=== PATIENT | female | born 1965 | race Caucasian/White ===

== ENCOUNTER 2020-04-17 20:01 | Emergency (ER) | payer MEDICARE, MEDICAID, SELFPAY ==
[2020-04-17 20:35] VITALS: BP 156/89; PULSE 89; RESP 14; TEMP 36.4; O2SAT 97; BMI 32.9
--- NOTE | 2020-04-17 20:38 | XRR_ITS ---
PROCEDURE INFORMATION: Exam: XR Left Ankle Exam date and time: 04/17/2020 8:54 PM Age: 55 years old Clinical indication: Injury or trauma; Fall; Initial encounter; Blunt trauma; Ankle; Bilateral TECHNIQUE: Imaging protocol: XR Left ankle. Views: 3 or more views. COMPARISON: No relevant prior studies available. FINDINGS: Bones/joints: Bimalleolar fracture left ankle. Minimally displaced avulsion fracture of the medial malleolus. Minimally displaced spiral fracture lateral malleolus. Ankle mortise intact. Soft tissues: Soft tissue swelling. XR/XR ankle LT min 3V* [id number] IMPRESSION: Bimalleolar fracture left ankle.
--- NOTE | 2020-04-17 22:15 | ED_ITS ---
HPI - Extremity Problem General: Chief complaint: Extremity Injury, Lower Stated complaint: L ankle injury Time Seen by Provider: 04/17/20 21:36 Source: patient Mode of arrival: ambulatory Limitations: no limitations History of Present Illness: HPI Narrative: Patient comes in for injury to the left ankle. Patient reports not being able to see well without her glasses on and missed stepped causing her left ankle to be twisted and injured. Patient denies any other injury. MD Complaint: joint swelling and joint pain Review of Systems General: Reports: 10 or more systems reviewed and unremarkable except in HPI and below Musc: Reports: other (Left ankle injury) Physical Exam Const: COMMON NORMALS: no acute distress and patient oriented x3 GENERAL APPEARANCE: cooperative HENMT: COMMON NORMALS: normocephalic and Normal external nose present HEAD & SCALP: normal to inspection and normocephalic NOSE: Normal external nose present Eye: GENERAL EYE: appearance normal, both eyes and all related structures Neck/C-Spine: COMMON NORMALS: full ROM Chest: COMMONS NORMALS: normal inspection of the chest Resp: COMMON NORMALS: normal respiratory effort EFFORT & INSPECTION: Yes able to speak in complete sentences Cardio: COMMON NORMALS: regular rate and regular rhythm RATE: regular rate RHYTHM: regular rhythm GI: COMMON NORMALS: non-tender Back/Pelvis: COMMON NORMALS: thoracic and lumbar spine normal to inspection Extremity: NARRATIVE EXTREMITY EXAM: Swelling and tenderness noted to the left lateral and medial ankle. Pulses are intact. Cap refill is normal. Neuro: COMMON NORMALS: patient oriented x3 and moves all extremities Psych: COMMON NORMALS: mental status grossly normal and cooperative Skin: COMMON NORMALS: no rashes or lesions noted GENERAL SKIN EXAM: no rashes or lesions noted Course Vital Signs: Vital signs: Vital Signs Temperature 97.5 F L 04/17/20 20:35 Pulse Rate 89 04/17/20 20:35 Respiratory Rate 14 04/17/20 20:35 Blood Pressure 156/89 04/17/20 20:35 Pulse Oximetry 97 04/17/20 20:35 MDM - Extremity (Nontraumatic) [facility] Narrative: Medical decision making narrative: Patient comes in today with injury to the left ankle. On exam we note significant swelling and tenderness to the ankle. Pulses and cap refill are normal distally. Vital signs are normal. Differential diagnosis includes but not limited to fracture, sprain, contusion. X-ray notes a tibial malleus fracture and fracture of the distal fibula. Minimal to no displacement is noted. Patient was placed in a posterior medial lateral splint with recommendations for follow-up with surgeon for further treatment and evaluation. Case management request place. Patient reports understanding of care plan and need for follow-up. Discharge Plan Discharge Patient Disposition: Home Clinical Impression: Ankle fracture Qualifiers: Encounter type: initial encounter Fracture type: closed Laterality: left Qualified Code(s): S82.892A - Other fracture of left lower leg, initial encounter for closed fracture Condition: Stable Prescriptions: New hydrocodone-acetaminophen 5-325 mg tablet 1 tab PO Q6H PRN (Reason: pain (scale score 7-10)) Qty: 14 RF: 0 Discharge Orders: Discharge Order (Routine); Ordered 04/17/20 Ordered By: Guero Ayala Referrals: Ivania Phillips FNP-C [Primary Care Provider] - Discharge Diet: Usual diet Discharge Activity: Limit activity as instructed Patient Instructions: Ankle Fracture (ED) Activity Restrictions/Additional Instructions: Limit weightbearing to the ankle. Keep splint clean and dry. Follow-up with orthopedics for further treatment and evaluation. Case management will contact you Monday regarding appointment follow-up. Return to the emergency department for new concerns. 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
[2020-04-17 22:35] VITALS: BP 132/88; PULSE 78; RESP 18; O2SAT 96
[2020-04-17] MEDS: HYDROcodone-acetaminophen 7.5-325 mg Tablet 1 TAB PO (22:35)
--- NOTE | 2020-04-20 10:09 | PC.SOCIAL ---
Spoke with Pat at [facility] regarding referral. She will have provider review and either call patient with appt or let this nurse know if unable to schedule.
--- NOTE | 2020-04-29 10:41 | DCPLANNER ---
Patient had an appointment scheduled for 04.20.20 with orth. Patient did attend the scheduled appointment.
== END 2020-04-17 22:37 | disposition home or self-care (01) ==
PROVIDERS: Emergency Provider Nurse Practitioner Family; PCP Nurse Practitioner
DX: S82.842A Displaced bimalleolar fracture of left lower leg, initial encounter for closed fracture (principal); X50.1XXA Overexertion from prolonged static or awkward postures, initial encounter
CPT/HCPCS: 12345; 29515; 73610; 99282; 99283

== ENCOUNTER 2020-04-21 11:02 | Day surgery (SDC) | payer MEDICARE, MEDICAID, SELFPAY ==
[2020-04-21] VITALS (10 sets, daily range): BP systolic 121–172; BP diastolic 76–108; PULSE 72–101; RESP 11–23; TEMP 36.2–36.4; O2SAT 97–100
--- NOTE | 2020-04-21 | XR_ITS ---
WS: [id number] INTRAOPERATIVE TECHNIQUE: 5 Spot fluoroscopic images for intraoperative purposes. FLUOROSCOPY TIME: 145.7 seconds CLINICAL INFORMATION: OR PICS, ORIF OF LEFT TIB FIB COMPARISON: None. FINDINGS: Postoperative changes plate and screw fixation distal fibula lateral malleolus. Screw fixation across the medial malleolus. Normal ankle mortise. XR/XR ankle LT min 3V* [id number] IMPRESSION: Images obtained for intraoperative purposes.
--- NOTE | 2020-04-21 | SCC_ITS ---
Procedure Done: Open reduction internal fixation of a left bimalleolar ankle fracture with medial and lateral fixation including a 3 hole distal lateral fibular plate with a combination of locking and nonlocking screws as well as 2 headless cannulated screws medially. 145.7 seconds of fluoroscopic guidance, for a cumulative dose of 3.69 mGy, was provided to Dr. Contreras by the radiology department. C-arm images of the LEFT ankle were saved for the patient's permanent record. SOFIE
[2020-04-21] MEDS: CELEcoxib 200 mg Capsule 400 MG PO (11:20)
--- NOTE | 2020-04-21 11:20 | P.HPUD_ITS ---
Surgery/Procedure H&P Update DATE OF PROCEDURE: April 21, 2020 DATE H&P PERFORMED: 04/20/20 H&P UPDATE INFORMATION: I have reviewed H&P completed within last 30 days, I have examined patient prior to procedure, No changes to prior documentation and [place] [facility] [place] date indicated PREOP DIAGNOSIS: Left bimalleolar ankle fracture PLANNED PROCEDURE: Operation Date: 04/21/20 12:00 Proposed Procedures p ORIF Ankle left bimalleolar fracture 96831/ s82.842a(Left) - Melissa Contreras MD Related Problem List Diagnoses (1) Closed bimalleolar fracture of left ankle:
--- NOTE | 2020-04-21 11:32 | ANES.PREANE2 ---
Pre-Anesthetic Assessment Pre-Anesthetic Assessment: Height/Weight: Height 1.57 m Weight 83.915 kg Preop Diagnosis: Left bimalleolar ankle fracture Proposed Procedure: Operation Date: 04/21/20 12:00 Proposed Procedures p ORIF Ankle left bimalleolar fracture 20824/ s82.842a(Left) - Melissa Contreras MD Familial anesthetic complications: None Last intake: Intake Last Liquid Date 04/20/20 Last Liquid Time 20:00 Last Solid Date 04/20/20 Last Solid Time 20:00 Social: Social History: Tobacco and No alcohol Exam: Pre-Anes Outpt Exam: alert, oriented x 3, clear to auscultation bilaterally and regular rate & rhythm Airway: Cervical ROM: WNL MP: 2 Dentition: False Pulmonary: Pulmonary: None reported CV/HEM: CV/HEM: None reported Musc/skel: Musc/skel: None reported Neuropsych: Neuropsych: None reported Anesthetic Plan: ASA status: 1 Anesthesia: General and Regional (specify below) Risk of > 500 ml blood loss (7ml/kg in children): No PFSH Anesthesia PFSH: Medical History (Updated 04/20/20 @ 15:58 by Melissa Contreras MD) Legally blind Retinitis pigmentosa Surgical History (Updated 04/20/20 @ 15:58 by Melissa Contreras MD) Hx of section Hx of cholecystectomy Family History (Updated 04/20/20 @ 14:27 by Steffi France LPN) Mother Cancer Diabetes Hypertension Social History (Updated 04/20/20 @ 14:28 by Steffi France LPN) Smoking and tobacco status: current every day smoker Data Anesthesia Cardiac Studies: No Data to Display
[2020-04-21] MEDS: sodium chloride 0.9% 1,000 ML 30 ML IV (11:40)
[2020-04-21 12:02] LABS: Basophils # 0.1 10^3/uL (0.0-0.1); Basophils % 0.7 %; Eosinophils # 0.2 10^3/uL (0.0-0.8); Eosinophils % 2.2 %; Hematocrit 41.1 % (37.0-47.0); Hemoglobin 13.1 g/dL (11.5-15.3); Lymphocytes # 1.9 10^3/uL (0.8-4.8); Lymphocytes % 27.4 %; Mean Corpuscular HGB Conc 31.9 g/dL (30.0-36.0); Mean Corpuscular Volume 94.3 fL (81-99); Mean Platelet Volume 11.3 fL (7.4-10.4); Monocytes # 0.5 10^3/uL (0.2-0.9); Monocytes % 7.7 %; Neutrophils # 4.18 10^3/uL (1.8-7.7); Neutrophils % 61.7 %; Nucleated Red Blood Cells % 0 %; Platelet Count 231 10^3/cmm (130-400); Red Blood Count 4.36 10^6/uL (4.1-5.3); Red Cell Distribution Width 12.3 % (12.1-15.1); White Blood Count 6.8 10^3/uL (4.0-10.0)
[2020-04-21] MEDS: midazolam 1 mg/mL INJ 2 mL 2 MG IVP (12:04)
--- NOTE | 2020-04-21 12:04 | ANES.PROC ---
Anesthesia Procedures Procedure/Date: 04/21/20 Nerve Block ^: Nerve Block 1: Main Anesthesia: general anesthesia Time Out Performed: Yes Consent: requested by attending/covering physician, from patient, risks and benefits reviewed and patient agrees to proceed Nerve block location: popliteal (L) Anesthesia monitors applied: pulse oximetry and oxygen Nerve block position: supine Anesthetic Used: ropivicaine 0.5% and with decadron (3 mg) Amount of anesthesia used (mL): 20 Ultrasound used to: recognize landmarks Nerve Stimulator Used?: No Interscalene/Femoral BLK: 4 stimuplex 21 g needle used for position and inplane approach, visualize local anesthetic spread and no vascular puncture identified Injection: neg aspiration of heme and paresthesia +/- Patient Tolerated Procedure: well Complications: none Nerve Block 2: Main Anesthesia: general anesthesia Time Out Performed: Yes Consent: requested by attending/covering physician Nerve block location: adductor canal (L) Anesthesia monitors applied: pulse oximetry and oxygen Anesthetic Used: with decadron (1 mg) Amount of anesthesia used (mL): 10 Ultrasound used to: recognize landmarks Nerve Stimulator Used?: No Interscalene/Femoral BLK: 4 stimuplex 21 g needle used for position and inplane approach, visualize local anesthetic spread and no vascular puncture identified Injection: neg aspiration of heme Patient Tolerated Procedure: well Complications: none
[2020-04-21 12:06] LABS: Add Urine Microscopic? YES; Bilirubin Urine Neg (NEGATIVE); Blood Urine Neg (Negative); Glucose Urine UA Norm (Normal); Ketones Urine Negative (Negative); Leukocyte Esterase Urine Negative (Negative); Nitrate Urine Negative (Negative); Protein Urine Neg (Negative); Specific Gravity, Urine 1.025 (1.005-1.030); Urine Appearance SL Hazy (CLEAR); Urine Color Yellow (Yellow); Urobilinogen Urine 1 mg/dL (Negative); pH Urine 5 (5-7)
[2020-04-21 12:11] LABS: Alanine Aminotransferase 55 U/L (0-33); Albumin Level 3.9 g/dL (3.5-5.2); Alkaline Phosphatase 78 IU/L (35-105); Blood Urea Nitrogen 9 mg/dL (6-20); Calcium 8.3 mg/dL (8.5-10.5); Carbon Dioxide 27 mmol/L (22-29); Chloride 103 mmol/L (98-107); Globulin 3.2 g/dL (1.3-4.6); Glomerular Filtration Rate 73.9 mL/min (90-130); Glucose 114 mg/dL (65-115); Osmolality Calculated 283 mOsm/kg (285-295); Sodium 138 mmol/L (136-145); Total Bilirubin 0.5 mg/dL (0.15-1.2); Total Protein 7.1 g/dL (6.6-8.7)
[2020-04-21 12:17] LABS: Squamous Epithelial Cell Urine 15-25 (0-5); WBC Urine 0-4 /hpf (0-5)
[2020-04-21 12:18] LABS: Add Urine Culture? No; Bacteria Urine 2+
[2020-04-21 12:23] LABS: Anion Gap 12.2 (5-19); Aspartate Amino Transferase 56 U/L (0-32); Potassium 4.2 mmol/L (3.5-5.1)
[2020-04-21] MEDS: ceFAZolin 1,000 mg SDV 1000 MG IRRIGATION (13:08)
--- NOTE | 2020-04-21 13:16 | SUR.OPER ---
jelani burger updated of surgical status.
[2020-04-21] MEDS: ondansetron 2 mg/ML SDV 2 mL 4 MG IVP ×2 (14:25→14:43)
--- NOTE | 2020-04-21 14:25 | P.OP_ITS ---
Operative Report Date of procedure: April 21, 2020 Pre-op Diagnosis: Left bimalleolar ankle fracture Post-op diagnosis: same Post-op Findings: Bimalleolar ankle fracture with displaced medial malleolus Procedure Done: Open reduction internal fixation of a left bimalleolar ankle fracture with medial and lateral fixation including a 3 hole distal lateral fibular plate with a combination of locking and nonlocking screws as well as 2 headless cannulated screws medially. Pathology: none sent Surgeon: Melissa Contreras Coat Check Attendant: [facility] OR technicians Anesthesia: General (Intubated with a popliteal regional block, ASA 3) Estimated blood loss (mL): 5 Tourniquet time (min): 70 Tourniquet time: At 250 mmHg IV fluids (mL): 600 Urine output (mL): 0 Complications: None Findings: Displaced medial malleolar fracture as well as an oblique fibular fracture Condition: stable Disposition: PACU (Then home with family) Brief History: This 55-year-old woman was in her usual state of health when she tripped over a creeper in the garage. 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 The patient agreed to proceed with operative intervention. Risks and complications were discussed with her. Consents were signed preoperatively. Procedure: Patient was seen in the preoperative holding area and leg was marked. Patient was brought to the operating theater and placed on the operating room table. After undergoing adequate general intubated anesthesia, intubated, ASA 3, the patient's left lower extremity was prepped and draped in usual fashion utilizing DuraPrep. The leg was draped free. Fluoroscopy was used throughout the surgical procedure. We did have a tourniquet high on the left lower extremity. This was elevated to 250 mmHg and total tourniquet time was 70 minutes. Tourniquet elevation followed exsanguination of the leg. A surgical pause was performed. At the time of the surgical pause we identified the site and side of surgery as well as the patient's identity and availability of equipment. We also confirmed appropriate administration of IV antibiotics, 2 g. Following the above, an incision was made centering over the patient's lateral malleolar distal fibula fracture. We were able to reduce the fracture anatomically. We chose a plate to appropriately fit the patient's distal fibula with plans to extend above the fracture by at least 3 screw holes. The 3 hole distal lateral fibular plate was attached with standard technique. We used a combination of locking as well as nonlocking screws with the locking screws distal and the nonlocking screws proximal. Once the plate was appropriately attached, we irrigated the wound. 0 Vicryl was then used to close the fascial tissues. We then closed the wound with 2-0 Monocryl in the subcutaneous tissues, and the skin was closed 4-0 Monocryl subcuticularly and Exofin. It was followed by the placement of Steri-Strips. Attention was then directed to the medial aspect of the ankle. Once again, we used fluoroscopy to determine the appropriate level to reduce the fracture and hold with a clamp. Two guidewires were placed in appropriate position as visualized in AP and lateral planes. We were then able to place cannulated screws, 50 and 55 mm in length over the guidewires to hold the medial malleolus nicely reduced. Throughout the surgical procedure and at the conclusion of the procedure we did use fluoroscopy. Fluoroscopy was utilized to determine appropriate positioning of the plate as well as the fractures. At the conclusion we did obtain AP and lateral images demonstrating the fracture was anatomically reduced. The medial incision was closed with 4-0 Monocryl. Sterile dressing was placed consisting of Telfa, 4 x 4's, Tegaderm, sterile soft roll and an Marshall wrap. The patient was placed in a Cam Walker boot and is to remain touchdown weightbearing. The procedure was well tolerated without complication. Tourniquet time was 70 minutes at 250 mmHg. The patient will be discharged home to follow-up in my office as scheduled. Associated Problem List Diagnoses (1) Closed bimalleolar fracture of left ankle:
--- NOTE | 2020-04-21 14:27 | SUR.PHASEI ---
1425 PATIENT TO PACU FROM OR. NO DISTRESS,. DRESSING INTACT TO LEFT ANKLE WITH WALKING BOOT. PATIENT C/O NAUSEA, ZOFRAN GIVEN. SPO2 98% ON SIMPLE MASK AT 8L.
[2020-04-21] MEDS: metoclopramide 5 mg/mL SDV 2 mL 10 MG IVP (14:51)
--- NOTE | 2020-04-21 14:59 | SUR.PHASEI ---
1456 PATIENT TO OPS. DENIES PAIN. NAUSEA IMPROVED. TOLERATING SPRITE AND CRACKERS.
== END 2020-04-21 15:47 | disposition home or self-care (01) ==
PROVIDERS: PCP Nurse Practitioner; Visit Provider Specialist
PROC: (CPT 27814; principal; 2020-04-21 11:40)
DX: S82.842A Displaced bimalleolar fracture of left lower leg, initial encounter for closed fracture (principal); W01.0XXA Fall on same level from slipping, tripping and stumbling without subsequent striking against object, initial encounter; Y92.015 Private garage of single-family (private) house as the place of occurrence of the external cause; H54.8 Legal blindness, as defined in USA; F17.210 Nicotine dependence, cigarettes, uncomplicated; Z79.891 Long term (current) use of opiate analgesic
CPT/HCPCS: 27814; 12345; 36415; 73610; 76000; 80053; 81001; 81003; 85025; 96365; 96374; C1713; J0131; J0690; J1100; J2250; J2405; J2704; J2710; J2765; J2795; J3010; J3490; J7030

== ENCOUNTER → 2020-05-04 12:06 | Outpatient (BNVA) | payer MEDICARE, MEDICAID, SELFPAY | PROVIDERS: PCP Nurse Practitioner; Visit Provider Specialist | DX: S82.842A Displaced bimalleolar fracture of left lower leg, initial encounter for closed fracture (principal) | CPT/HCPCS: 73610 ==

== ENCOUNTER → 2020-05-18 09:41 | Outpatient (BNVA) | payer MEDICARE, MEDICAID, SELFPAY | PROVIDERS: PCP Nurse Practitioner; Visit Provider Specialist | DX: S82.842A Displaced bimalleolar fracture of left lower leg, initial encounter for closed fracture (principal); Z98.890 Other specified postprocedural states; Z87.81 Personal history of (healed) traumatic fracture | CPT/HCPCS: 73610 ==

== ENCOUNTER → 2020-06-03 10:02 | Outpatient (BNVA) | payer MEDICARE, MEDICAID, SELFPAY | PROVIDERS: PCP Nurse Practitioner; Visit Provider Specialist | DX: S82.842A Displaced bimalleolar fracture of left lower leg, initial encounter for closed fracture (principal); Z98.890 Other specified postprocedural states; Z87.81 Personal history of (healed) traumatic fracture | CPT/HCPCS: 73610 ==

== ENCOUNTER → 2020-06-25 09:46 | Outpatient (BNVA) | payer MEDICARE, MEDICAID, SELFPAY | PROVIDERS: PCP Nurse Practitioner; Visit Provider Specialist | DX: Z98.890 Other specified postprocedural states (principal); Z87.81 Personal history of (healed) traumatic fracture; Z47.89 Encounter for other orthopedic aftercare; S82.842D Displaced bimalleolar fracture of left lower leg, subsequent encounter for closed fracture with routine healing; X58.XXXD Exposure to other specified factors, subsequent encounter | CPT/HCPCS: 73610; 97760; L1902 ==

== ENCOUNTER 2020-06-25 14:03 | Outpatient (CLI) | payer MEDICARE, MEDICAID, SELFPAY | END 2020-06-25 14:04 | disposition home or self-care (01) | LOC: SPT 14:04 | PROVIDERS: PCP Nurse Practitioner; Visit Provider Specialist | DX: Z47.89 Encounter for other orthopedic aftercare (principal); S82.842D Displaced bimalleolar fracture of left lower leg, subsequent encounter for closed fracture with routine healing; X58.XXXD Exposure to other specified factors, subsequent encounter | CPT/HCPCS: 97760; L1902 ==

== ENCOUNTER 2020-12-02 14:23 | Outpatient (CLI) | payer MEDICARE, MEDICAID, SELFPAY | END 2020-12-02 14:24 | disposition home or self-care (01) | PROVIDERS: PCP Nurse Practitioner; Visit Provider Internal Medicine | DX: R17 Unspecified jaundice (principal) | CPT/HCPCS: 36415; 80053; 82140; 85025 ==

== ENCOUNTER 2023-06-28 09:38 | Emergency (ER) | payer MEDICARE, MEDICAID, SELFPAY ==
--- NOTE | 2023-06-28 09:42 | ED_ITS ---
HPI - Extremity Injury (Lower) General: Chief Complaint: Extremity Injury, Lower Stated Complaint: right leg/ankle injury Time Seen by Provider: 06/28/23 09:39 Source: patient Mode of arrival: wheelchair Limitations: no limitations History of Present Illness: Patient is a 58-year-old male who presents to ED today with complaint of an injury to her right ankle. Patient states just prior to arrival she accidentally tripped and fell and twisted the right ankle. Patient states she is legally blind so she often trips over things on the floor. Patient states she has not been able to bear weight on the extremity since the injury. She has no other complaints at this time apart from her right ankle pain. MD complaint: ankle injury Onset (ago): hour(s) Type of Injury: inversion Place: home Severity: severe Relieving factors: immobilization Exacerbating factors: weight bearing, movement and palpation Context: fall Associated symptoms: Reports inability to bear weight Review of Systems Musc: Reports: joint pain (R ankle), joint swelling (R ankle) and limited range of motion; Denies: extremity pain, extremity swelling, joint redness or joint warmth Neuro: Denies: numbness in extremities or sensory changes [facility] ED PFSH: Medical History Legally blind Retinitis pigmentosa Surgical History Hx of section Hx of cholecystectomy Status post open reduction with internal fixation (ORIF) of fracture of ankle (04/21/20) Family History Mother Cancer Diabetes Hypertension Social History Smoking and tobacco status: current every day smoker Physical Exam Const: COMMON NORMALS: no acute distress, patient oriented x3, no limitations, alert and well nourished Extremity: COMMON NORMALS: capillary refill normal and no calf tenderness GENERAL: Yes normal exam except as noted LEFT LOWER EXTREMITY: Yes ankle joint (significant pain/tenderness overlying lateral malleolus) Left ankle: Yes ROM (limited secondary to pain) and Yes neurovascular exam (normal) Neuro: COMMON NORMALS: patient oriented x3, moves all extremities, no focal motor deficits and no sensory deficits noted SENSORIUM/ORIENTATION: Yes alert Skin: TRAUMA: no lacerations or abrasions Course Vital Signs: Vital signs: Vital Signs Temperature 98.0 F 06/28/23 09:47 Pulse Rate 95 06/28/23 10:01 Respiratory Rate 19 H 06/28/23 10:01 Blood Pressure 163/88 06/28/23 10:01 Pulse Oximetry 95 06/28/23 10:01 Oxygen Delivery Me thod Room Air 06/28/23 10:01 MDM - Extremity Injury (Lower) Medical Decision Making Patient's XR got interpreted from radiology as a subacute distal fibular fracture however clinically this is an acute fracture/acute injury. Personal interpretation of x-ray also looks like a possible posterior malleolus fracture. Patient will be splinted and will refer to orthopedics. She states she is not a candidate for crutches due to her being legally blind and requesting a knee scooter. Insurance would not cover and she states she cannot afford the $53/mo to rent so we will do a wheelchair with leg lift. We will have HOME bring her one of these. Instructions for elevation/ice to help with swelling. All radiology interpretation(s) finalized by discharge Discharge Plan Discharge Patient Disposition: Home Clinical Impression: Bimalleolar fracture of right ankle Qualifiers: Encounter type: initial encounter Fracture type: closed Qualified Code(s): S82.841A - Displaced bimalleolar fracture of right lower leg, initial encounter for closed fracture Condition: Stable Prescriptions: New oxycodone-acetaminophen 5-325 mg tablet 1 tab PO Q6H PRN (Reason: pain) Qty: 14 0RF No Action amoxicillin 500 mg tablet 1,000 mg PO BID 5 Days Qty: 20 0RF Discharge Orders: Discharge ED (Routine); Ordered 06/28/23 Ordered By: Ana Floers Referrals: Ivania Phillips, ASSOCIATE COUNSEL-C [Primary Care Provider] - Patient Instructions: Ankle Fracture (DC), Opioid Safety, Pain Management Activity Restrictions/Additional Instructions: As we discussed no weightbearing until told otherwise by orthopedics. Case management should reach out to you shortly to help set you up with this follow- up appointment. 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
[2023-06-28 09:47] VITALS: BP 163/88; PULSE 107; RESP 20; TEMP 36.7; O2SAT 97; BMI 32.9
--- NOTE | 2023-06-28 09:48 | XR_ITS ---
WS: [id number] EXAMINATION: XR ankle RT min 3V* [id number] REASON FOR EXAM: trauma/injury COMPARISON: None available. ORDER DATE: 06/28/2023 9:50 AM TECHNIQUE: 3 views of the right ankle were obtained. X-RAY FINDINGS: There is an oblique fracture which appears somewhat subacute with some callus development but continu ed diffuse edema. The ankle mortise remains intact. IMPRESSION: Subacute distal fibular fracture..
[2023-06-28 09:57] VITALS: PULSE 65
[2023-06-28 10:01] VITALS: BP 163/88; PULSE 95; RESP 19; O2SAT 95
--- NOTE | 2023-06-28 11:15 | PC.SOCIAL ---
Ortho Referral Referral message sent at this time. Clinic to contact patient with appt date/time.
== END 2023-06-28 11:35 | disposition home or self-care (01) ==
PROVIDERS: Emergency Provider Physician Assistant; PCP Nurse Practitioner
DX: S82.841A Displaced bimalleolar fracture of right lower leg, initial encounter for closed fracture (principal); F17.210 Nicotine dependence, cigarettes, uncomplicated; W01.0XXA Fall on same level from slipping, tripping and stumbling without subsequent striking against object, initial encounter
CPT/HCPCS: 29515; 73610; 99283; A4590

== ENCOUNTER → 2023-06-29 12:16 | Outpatient (BNVA) | payer MEDICARE, MEDICAID, SELFPAY | PROVIDERS: PCP Nurse Practitioner; Visit Provider Podiatrist Foot & Ankle Surgery | DX: S82.831A Other fracture of upper and lower end of right fibula, initial encounter for closed fracture; X58.XXXA Exposure to other specified factors, initial encounter | CPT/HCPCS: 99204 ==

== ENCOUNTER 2023-07-05 05:45 | Day surgery (SDC) | payer MEDICARE, MEDICAID, SELFPAY ==
[2023-07-04 12:49] VITALS: BMI 32.0
[2023-07-05] VITALS (9 sets, daily range): BP systolic 108–145; BP diastolic 64–85; PULSE 90–97; RESP 16–18; TEMP 36.1–36.2; O2SAT 90–96; BMI 32.0
--- NOTE | 2023-07-05 | XR_ITS ---
WS: [id number] Right ankle, C-arm fluoroscopy views, 07/05/2023 Clinical Data: OR PIC. orif of right ankle Comparison: None. Findings: Dr. Arias applied a lateral plate with multiple screws to reduce a distal right fibular fracture. Impression: Internal fixation of distal right fibular fracture.
[2023-07-05 06:40] LABS: Basophils # 0.1 10^3/uL (0.0-0.1); Basophils % 0.8 %; Eosinophils # 0.1 10^3/uL (0.0-0.8); Eosinophils % 1.7 %; Hematocrit 42.5 % (36-47); Mean Corpuscular HGB Conc 32.9 g/dL (30-55); Mean Corpuscular Hemoglobin 30.1 pg (27-33); Mean Corpuscular Volume 91.4 fl (85-98); Monocytes # 0.6 10^3/uL (0.2-0.9); Monocytes % 6.8 %; Neutrophils # 5.61 10^3/uL (1.8-7.7); Neutrophils % 66.2 %; Nucleated Red Blood Cells % 0 %; Platelet Count 252 10^3/cmm (157-399); Red Blood Count 4.65 10^6/uL (3.85-5.65); Red Cell Distribution Width 12.3 % (12.1-15.1); White Blood Count 8.47 10^3/uL (3.29-11.43)
[2023-07-05] MEDS: gabapentin 300 mg Capsule PO (06:43)
[2023-07-05] MEDS: sodium chloride 0.9% 1,000 ML 30 ML IV (06:44)
[2023-07-05] MEDS: acetaminophen 1,000 MG/100 ML PIGGYBACK 400 MG IV (06:44)
--- NOTE | 2023-07-05 06:50 | W.PM.OPSUD ---
Surgery/Procedure H&P Update DATE OF PROCEDURE: July 05, 2023 DATE H&P PERFORMED: 06/29/23 CHANGES TO PREVIOUS DOCUMENTATION: no changes PLANNED PROCEDURE: Operation Date: 07/05/23 07:00 Proposed Procedures p ORIF right distal fibular fracture 53363,S82.401A(Right) - Jamel Arias DPM
[2023-07-05 06:51] LABS: Blood Urea Nitrogen 14 mg/dL (8-23); Calcium 8.7 mg/dL (8.5-10.5); Carbon Dioxide 23 mmol/L (22-29); Chloride 104 mmol/L (98-107); Glomerular Filtration Rate 63.9 mL/min (90-130); Glucose 149 mg/dL (65-115); Osmolality Calculated 287 mOsm/kg (285-295); Sodium 137 mmol/L (136-145)
[2023-07-05] MEDS: ceFAZolin 2,000 MG in sodium chloride 0.9% (plus) 50 ML 100 MG IV (06:57)
--- NOTE | 2023-07-05 07:48 | ANES.PREANE2 ---
Pre-Anesthetic Assessment Height/Weight: Height 1.57 m Weight 79.379 kg Temp Pulse Resp BP Pulse Ox O2 Del Method 97.1 F L 96 17 145/84 96 Room Air 07/05/23 06:00 07/05/23 06:00 07/05/23 06:00 07/05/23 06:00 07/05/23 06:00 07/05/23 06:06 Operation Date: 07/05/23 07:00 Proposed Procedures p ORIF right distal fibular fracture 25900,S82.401A(Right) - Jamel Arias DPM Familial anesthetic complications: none Was Beta Manju taken within 24 hours: N/A Was Clonidine taken within 24 hours: N/A Last intake: Intake Last Liquid Date 07/04/23 Last Liquid Time 19:00 Last Solid Date 07/04/23 Last Solid Time 19:00 Social Tobacco and No alcohol Exam alert, oriented x 3 and regular rate & rhythm Airway Submandibular: within normal limits Cervical ROM: within normal limits Mallampati: Class II Comments: Comments: Missing most teeth Metabolic Morbid Obesity Anesthetic Plan ASA status: 2 Anesthesia: Regional (specify below) (Right popliteal blk) Medications/Allergies Home Medications Medication Instructions Recorded Confirmed Last Taken Type crutches #1 ea 07/04/23 07/04/23 Unknown Rx tramadol 50 mg tablet 50 mg PO Q6H #28 tabs 07/05/23 Unknown Rx Allergies Allergy/AdvReac Type Severity Reaction Status Date / Time No Known Allergies Allergy Verified 07/04/23 12:45 Current Medications Generic Name Dose Route Start Last Admin Trade Name Freq PRN Reason Stop Dose Admin Sodium Chloride 1,000 mls @ 30 mls/hr 07/05/23 06:00 07/05/23 06:44 Sodium Chloride 0.9% IV 07/06/23 05:59 30 mls/hr .Q24H GUY Administration PFSH Anesthesia Medical History (Updated 06/29/23 @ 13:12 by Jamel Arias DPM) Legally blind Retinitis pigmentosa Surgical History Hx of section Hx of cholecystectomy Status post open reduction with internal fixation (ORIF) of fracture of ankle (04/21/20) Family History Mother Cancer Diabetes Hypertension Social History Smoking and tobacco status: current every day smoker Data Anesthesia 07/05/23 06:16 07/05/23 06:16 Short CBC 07/05/23 Range/Units 06:16 WBC 8.47 (3.29-11.43) 10^3/uL Hgb 14.00 (11.27-16.99) g/dL Hct 42.5 (36-47) % MCV 91.4 (85-98) fl Plt Count 252 (157-399) 10^3/cmm Neut % (Auto) 66.2 % Neut # (Auto) 5.61 (1.8-7.7) 10^3/uL BMP 07/05/23 06:16 Sodium 137 Potassium 4.0 Chloride 104 Carbon Dioxide 23 BUN 14 Creatinine 0.9 Glucose 149 H Calcium 8.7 Cardiac Studies: No Data to Display
[2023-07-05] MEDS: BUPivacaine 0.5% INJ 30 mL 10 ML INJECTION (08:12)
--- NOTE | 2023-07-05 08:21 | W.PM.BPON ---
Date of procedure: 07/05/2023 Surgeon name: Dr. Jamel Arias D.P.M. Chief Maintenance Supervisor(s) name(s): None Procedure(s) performed: Open reduction internal fixation right distal fibular fracture Description of findings: Estrella B fibular fracture right ankle Estimated blood loss: 10 cc Specimen(s) removed: None Post-operative diagnosis: Distal fibular fracture right ankle
--- NOTE | 2023-07-05 08:22 | PM.OP ---
Operative Report Date of procedure: July 05, 2023 Pre-op diagnosis: Right distal fibular fracture Post-op diagnosis: Right distal fibular fracture Post-op findings: Estrella B fibular fracture right ankle Procedure done: Open reduction internal fixation right distal fibular fracture CPT 46732 Implants: Anatomic fibular plate with locking 2.7 and 3.5 mm locking screws from [employer] Surgeon: Jamel Arias DPM Estimated blood loss: Less than 20 cc Complications: None Findings: See above Procedure: Patient is a 58-year-old male that has a history of right ankle distal fibular fracture. The level of displacement necessitates open reduction internal fixation. A lengthy discussion regarding the procedure, including risks and complications has been had with the patient and is noted in the recent clinic note. Written and verbal consent have been obtained. All patient questions have been answered to the patient?s satisfaction. No written or verbal guarantees have been given or implied. The patient has been NPO since midnight. The history has been reviewed and the history and physical is current. The signed consent was confirmed and placed in the patient chart. Patient imaging has been reviewed and is consistent with the diagnosis. Under mild sedation, the patient was brought into the operating room and placed on the table in the supine position. IV antibiotics were given by the anesthesia team as preoperative surgical prophylaxis. General sedation was then performed by the anesthesiateam. The patient received a popliteal block in the preoperative area by the anesthesia team. A pneumatic tourniquet was then placed about the right thigh. The operative extremity was then prepped and draped in the usual fashion. The extremity was then elevated and exsanguinated before the tourniquet was inflated to 325 mmHg. After inflation, the following procedure was then performed. Attention was directed to the lateral aspect of the right ankle where an 8 cm incision was made with a #15 blade. Blunt dissection was carried down through subcutaneous and superficial fascia to the level of deep fascia which was incised with a #15 blade. Dissection was carried down to the periosteum which was dissected free from the fibula to expose the fibular fracture. A combination of dental pick and curette was used to Duvoid the fibular fracture from hematoma. After voiding the area from hematoma a lobster-claw reduction clamp was used to reduce the distal fibular fracture. A 3.5 mm nonlocking screw was then driven across the fracture site and interfrag fashion. Good position of the screw was noted clinically as well as on C-arm imaging. Next a anatomic fibular plate from [employer] was positioned on the lateral aspect of the fibula. The distal holes of the plate were drilled and filled with 2.7 mm locking screws before the proximal holes of the plate were filled with locking 3.5 millimeter screws all from [employer]. Good positioning of the plate and screws was noted on C-arm imaging. The syndesmosis was stressed and was noted to be intact with no instability. The site was then irrigated with copious amounts of sterile saline before attention was directed to closure. Deep tissue was closed with 2-0 Vicryl followed by subcuticular closure with 3-0 Vicryl and skin closure with skin abhijeet. The incision site was dressed with Xeroform, 4 x 4 gauze, Kerlix before being placed in a well-padded below the knee posterior splint. The patient tolerated the procedure and anesthesia well and without complication. The patient was transported from the operating room to the recovery room with vital signs stable and vascular status intact to all digits of the right foot. The patient was given both written and verbal instructions to remain nonweightbearing to the operative extremity, to keep dressings/splint clean, dry and intact and to take pain medication as directed. The patient will follow-up in the outpatient setting at their scheduled appointment. The patient was discharged with my personal number and was instructed to call if any questions or issues should arise. They were discharged home once anesthesia criteria was met.
[2023-07-05] MEDS: fentaNYL 50 mcg/mL INJ 2mL 100 MCG IVP (08:35)
--- NOTE | 2023-07-05 09:18 | ANES.PROC ---
Anesthesia Procedures Procedure/Date: 07/05/23 Nerve Block ^: Nerve Block 1: Main Anesthesia: general anesthesia Time Out Performed: Yes Consent: requested by attending/covering physician, from patient, risks and benefits reviewed and patient agrees to proceed Nerve block location: popliteal (right) Anesthesia monitors applied: pulse oximetry, EKG, BP cuff and oxygen Nerve block position: supine Anesthetic Used: ropivicaine 0.5% Amount of anesthesia used (mL): 30 Ultrasound used to: recognize landmarks Nerve Stimulator Used?: Yes Interscalene/Femoral BLK: 4 stimuplex 21 g needle used for position and inplane approach Injection: neg aspiration of heme Patient Tolerated Procedure: well Complications: none
--- NOTE | 2023-07-05 16:10 | ANE.PACU2 ---
Inpatient post-anesthesia follow up: Airway intact: Yes Vital signs: Temperature 97 F Pulse Rate 92 Respiratory Rate 18 Blood Pressure 120/75 Pulse Oximetry 96 Oxygen Delivery Me thod Room Air Oxygen Flow Rate Fraction of Inspir ed Oxygen Hydration adequate: Yes Nausea and vomiting: No Pain level: 3 Mental status: Baseline
== END 2023-07-05 09:30 | disposition home or self-care (01) ==
PROVIDERS: Anesthesiology; PCP Internal Medicine; Visit Provider Podiatrist Foot & Ankle Surgery
PROC: (CPT 27792; principal; 2023-07-05 07:00)
DX: S82.401A Unspecified fracture of shaft of right fibula, initial encounter for closed fracture (principal); X58.XXXA Exposure to other specified factors, initial encounter; E66.01 Morbid (severe) obesity due to excess calories; Z68.32 Body mass index [BMI] 32.0-32.9, adult; F17.200 Nicotine dependence, unspecified, uncomplicated
CPT/HCPCS: 27792; 36415; 73600; 76000; 80048; 85025; C1713; J0131; J0690; J1100; J2405; J2704; J2795; J3010; J3490; J7030

== ENCOUNTER → 2023-07-19 14:45 | Outpatient (BNVA) | payer MEDICARE, MEDICAID, SELFPAY | PROVIDERS: PCP Internal Medicine; Visit Provider Podiatrist Foot & Ankle Surgery | DX: S82.831D Other fracture of upper and lower end of right fibula, subsequent encounter for closed fracture with routine healing; X58.XXXD Exposure to other specified factors, subsequent encounter | CPT/HCPCS: 73610; 99024 ==

== ENCOUNTER → 2023-08-02 14:53 | Outpatient (BNVA) | payer MEDICARE, MEDICAID, SELFPAY | PROVIDERS: PCP Internal Medicine; Visit Provider Podiatrist Foot & Ankle Surgery | DX: Z98.890 Other specified postprocedural states; S82.831D Other fracture of upper and lower end of right fibula, subsequent encounter for closed fracture with routine healing; X58.XXXD Exposure to other specified factors, subsequent encounter | CPT/HCPCS: 73610; 99024 ==

== ENCOUNTER → 2023-08-16 10:22 | Outpatient (BNVA) | payer MEDICARE, MEDICAID, SELFPAY | PROVIDERS: PCP Internal Medicine; Visit Provider Podiatrist Foot & Ankle Surgery | DX: Z98.890 Other specified postprocedural states; S82.831D Other fracture of upper and lower end of right fibula, subsequent encounter for closed fracture with routine healing; X58.XXXD Exposure to other specified factors, subsequent encounter; Z46.89 Encounter for fitting and adjustment of other specified devices; M25.571 Pain in right ankle and joints of right foot | CPT/HCPCS: 73610; 97760; 99024; L1902 ==

== ENCOUNTER 2023-08-16 11:31 | Outpatient (CLI) | payer MEDICARE, MEDICAID, SELFPAY | END 2023-08-16 11:32 | disposition home or self-care (01) | LOC: SPT 11:31 | PROVIDERS: PCP Internal Medicine; Visit Provider Podiatrist Foot & Ankle Surgery | DX: Z46.89 Encounter for fitting and adjustment of other specified devices (principal); X58.XXXD Exposure to other specified factors, subsequent encounter; M25.571 Pain in right ankle and joints of right foot | CPT/HCPCS: 97760; 99024; L1902 ==